=== PATIENT | male | born 1980 | race Caucasian/White ===

== ENCOUNTER 2016-07-21 01:14 | Emergency (ER) | payer BC ==
--- NOTE | 2016-07-21 03:29 | ED NURSING NOTES ---
Clinical Report - Nurses [place] [address] [place] [address] 07/21/2016 1:16 Patient: LORI COVARRUBIAS TRIAGE Triage time 01:25. Acuity: LEVEL 4. Chief Complaint: BACK PAIN and (mid back pain down to foot on left side). Alert. --: Armida Banks R.N. 01:25 07/21/16. BP: 134/86. HR: 79. RR: 15. O2 saturation: 98% on room air. Pain level now: 01/03. --: Armida Banks R.N. Weight: 83.9 kg stated. Height/Length: 74 inches Per Patient. BMI: 23.8. --: Armida Banks R.N. Medications Nitroglycerin Translingual, as needed, last dose 05-28-16. --: Armida Banks R.N. Allergies No Known Drug Allergy. --: Armida Banks R.N. History Arrived by private vehicle. Historian: patient. Primary physician (Young ([facility])). This started today. This is a new problem and onset was abrupt. (at about 1700). He has had trouble walking. 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 PAST MEDICAL HX: Tetanus status: up-to-date. Immunizations: up-to-date. SOCIAL HX: Heavy tobacco smoker- 1-2 packs per day. Occasional alcohol use. History of drug use: marijuana. NUTRITIONAL RISK ASSESSMENT: The nutritional risk assessment revealed no deficiencies. FUNCTIONAL ASSESSMENT: Functional assessment: no impairments noted. --: Armida Banks R.N. PROBLEMS: Asthma. Anxiety Reaction. --: Armida aBnks R.N. ADDITIONAL SURGERIES: Cholecystectomy. --: Armida Banks R.N. Interventions ID band on patient. To treatment room. --: Armida Banks R.N. PHYSICAL ASSESSMENT To room via wheelchair. GENERAL / NEURO / PSYCH: Alert. Oriented X 4. Appears in pain. RESPIRATORY: Respirations not labored. CVS: Capillary refill less than 2 seconds. --: Armida Banks R.N. NURSING PROGRESS NOTES Head of bed elevated. Two patient identifiers checked. Call light placed in reach. Side rails up x 1. Bed placed in lowest position. Brakes of bed on. -- Armida Bnaks R.N. Patient ready for evaluation- chart flagged. --: Armida Banks R.N. DISPOSITION / DISCHARGE Condition at departure: stable. No learning barriers present. Discharge instructions provided and reviewed with the patient. Reviewed medication(s) side effects, precautions, dosing and course information. Prescription(s) given to the patient. Patient verbalized understanding. Written instructions provided in Thai. The patient was discharged home and accompanied by floorperson. He left the Emergency Department ambulatory and via private vehicle. Outbound Telemarketer driving. --03:37 Armida Banks R.N. 03:34 07/21/16. BP: deferred. HR: deferred. RR: 16. O2 saturation: deferred. Temp: deferred. Nieves-Evans pain scale: 4/10. --03:37 Armida Banks R.N. ( pt refuses discharge vitals, states "I'm just ready to get home"). --03:38 Armida Banks R.N. Locked/Released at 07/21/2016 3:38 by Armida Banks R.N.
--- NOTE | 2016-07-21 03:29 | ED CLINICAL REPORT ---
Clinical Report - Physicians/Mid Levels [facility] [address] [place] [address] 07/21/2016 1:16 Patient: LORI COVARRUBIAS Time Seen: 01:42. Arrived- By private vehicle. Historian- patient. HISTORY OF PRESENT ILLNESS Chief Complaint: BACK PAIN. It is described as being in the area of the upper lumbar spine and radiating to the left thigh. Onset was today and it is still present. It was abrupt in onset and has been constant. No bladder dysfunction, bowel dysfunction, sensory loss or motor loss. Patient denies an injury. REVIEW OF SYSTEMS No chills, fever, sweats, calf pain or chest pain. No cough, difficulty breathing, pedal edema, palpitations or abdominal pain. No constipation, diarrhea, nausea, vomiting or urinary problems. All systems otherwise negative, except as recorded above. SOCIAL HISTORY Heavy tobacco smoker- 1-2 packs per day. Occasional alcohol use. History of drug use: marijuana. FAMILY HISTORY Denies family medical history. ADDITIONAL NOTES The nursing notes have been reviewed. PHYSICAL EXAM Vital Signs: 07/21/2016 01:25 BP: 134/86. HR: 79. RR: 15. O2 saturation: 98%. Pain level now: 7/10. Have been reviewed. Appearance: Alert. Eyes: Pupils equal, round and reactive to light. ENT: Pharynx normal. CVS: Heart sounds normal. Respiratory: No respiratory distress. Breath sounds normal. Abdomen: No visible injury. Soft and nontender. Bowel sounds normal. No organomegaly. No mass. Back: Normal inspection. Mild muscle spasm of the right and left posterior back. Vertebral point tenderness. Skin: Skin warm and dry. Normal skin color. Normal skin turgor. Extremities: Extremities exhibit normal ROM. Extremities nontender. LABS, X-RAYS, AND EKG LS-Spine X-rays: No fracture or subluxation. The X-rays were independently viewed by me. PROGRESS AND PROCEDURES Patient/family counseled. Old medical records ordered. Disposition: Discharged. Condition: stable. CLINICAL IMPRESSION Acute lumbar strain. INSTRUCTIONS No driving or operating machinery while taking medication. No lifting greater than 5 lbs, no bending or stooping or no prolonged sitting until well. Warnings: GENERAL WARNINGS: Return or contact your physician immediately if your condition worsens or changes unexpectedly, if not improving as expected, or if other problems arise. Prescription Medications: Flexeril 10 mg: Take 1 orally every 8 hours as needed for muscle spasm. Dispense twenty (20). No refills. Substitution is permissible. Diclofenac 50 mg tablets: Take 1 tablet orally every 8 hours as needed. Dispense thirty (30). No refills. Follow-up: Follow up with your doctor Tuesday in five days if not better. Call for an appointment. Understanding of the discharge instructions verbalized by patient. (Electronically signed by Robbie Meza MD 07/25/2016 16:02)
--- NOTE | 2016-07-21 03:29 | ED ORDER SUMMARY ---
..... Patient: LORI COVARRUBIAS OrderSheet [facility] VisitID: [id number] [address] [place] [address] 35y, M Registration Date/Time: 07/21/2016 ORDER SHEET Weight: 83.9 kg (stated) Allergies: No Known Drug Allergy GENERAL ORDERS: Lumbar Spine 2 or 3V Urgent (01:42 07/21/2016 Naomi CABRALES) (Ack 1:49 CHagerty ER Element Burner) (2:27 CHagerty ER Element Burner) MEDICATION ORDERS: IV FLUIDS: ORDER SHEET NOTES: [Electronically signed by Armida Banks R.N. (03:38 07/21/2016)] [Electronically signed by Robbie Meza MD (16:02 07/25/2016)] [Electronically locked/signed by Armida Banks R.N. (03:38 07/21/2016)]
--- NOTE | 2016-07-21 03:29 | ED ORDER SUMMARY ---
..... Patient: LORI COVARRUBIAS OrderSheet [facility] VisitID: [id number] [address] [place] [address] 35y, M Registration Date/Time: 07/21/2016 ORDER SHEET Weight: 83.9 kg (stated) Allergies: No Known Drug Allergy GENERAL ORDERS: Lumbar Spine 2 or 3V Urgent (01:42 07/21/2016 Naomi CABRALES) (Ack 1:49 CHagerty ER Auto Carrier Driver) (2:27 CHagerty ER Auto Carrier Driver) MEDICATION ORDERS: IV FLUIDS: ORDER SHEET NOTES: [Electronically signed by Armida Banks R.N. (03:38 07/21/2016)] [Electronically signed by Robbie Meza MD (16:02 07/25/2016)] [Electronically locked/signed by Armida Banks R.N. (03:38 07/21/2016)]
--- NOTE | 2016-07-21 03:29 | ED NURSING NOTES ---
Clinical Report - Nurses [place] [address] [place] [address] 07/21/2016 1:16 Patient: LORI COVARRUBIAS TRIAGE Triage time 01:25. Acuity: LEVEL 4. Chief Complaint: BACK PAIN and (mid back pain down to foot on left side). Alert. --: Armida Banks R.N. 01:25 07/21/16. BP: 134/86. HR: 79. RR: 15. O2 saturation: 98% on room air. Pain level now: 01/03. --: Armida Banks R.N. Weight: 83.9 kg stated. Height/Length: 74 inches Per Patient. BMI: 23.8. --: Armida Banks R.N. Medications Nitroglycerin Translingual, as needed, last dose 05-28-16. --: Armida Banks R.N. Allergies No Known Drug Allergy. --: Armida Banks R.N. History Arrived by private vehicle. Historian: patient. Primary physician (Young ([facility])). This started today. This is a new problem and onset was abrupt. (at about 1700). He has had trouble walking. 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 PAST MEDICAL HX: Tetanus status: up-to-date. Immunizations: up-to-date. SOCIAL HX: Heavy tobacco smoker- 1-2 packs per day. Occasional alcohol use. History of drug use: marijuana. NUTRITIONAL RISK ASSESSMENT: The nutritional risk assessment revealed no deficiencies. FUNCTIONAL ASSESSMENT: Functional assessment: no impairments noted. --: Armida Banks R.N. PROBLEMS: Asthma. Anxiety Reaction. --: Armida Banks R.N. ADDITIONAL SURGERIES: Cholecystectomy. --: Armida Banks R.N. Interventions ID band on patient. To treatment room. --: Armida Banks R.N. PHYSICAL ASSESSMENT To room via wheelchair. GENERAL / NEURO / PSYCH: Alert. Oriented X 4. Appears in pain. RESPIRATORY: Respirations not labored. CVS: Capillary refill less than 2 seconds. --: Armida Banks R.N. NURSING PROGRESS NOTES Head of bed elevated. Two patient identifiers checked. Call light placed in reach. Side rails up x 1. Bed placed in lowest position. Brakes of bed on. -- Armida Banks R.N. Patient ready for evaluation- chart flagged. --: Armida Banks R.N. DISPOSITION / DISCHARGE Condition at departure: stable. No learning barriers present. Discharge instructions provided and reviewed with the patient. Reviewed medication(s) side effects, precautions, dosing and course information. Prescription(s) given to the patient. Patient verbalized understanding. Written instructions provided in American. The patient was discharged home and accompanied by packing floor worker. He left the Emergency Department ambulatory and via private vehicle. Rug Touch Up Painter driving. --03:37 Armida Banks R.N. 03:34 07/21/16. BP: deferred. HR: deferred. RR: 16. O2 saturation: deferred. Temp: deferred. Nieves-Evans pain scale: 4/10. --03:37 Armida Banks R.N. ( pt refuses discharge vitals, states "I'm just ready to get home"). --03:38 Armida Banks R.N. Locked/Released at 07/21/2016 3:38 by Armida Banks R.N.
--- NOTE | 2016-07-21 03:29 | ED CLINICAL REPORT ---
Clinical Report - Physicians/Mid Levels [facility] [address] [place] [address] 07/21/2016 1:16 Patient: LORI COVARURBIAS Time Seen: 01:42. Arrived- By private vehicle. Historian- patient. HISTORY OF PRESENT ILLNESS Chief Complaint: BACK PAIN. It is described as being in the area of the upper lumbar spine and radiating to the left thigh. Onset was today and it is still present. It was abrupt in onset and has been constant. No bladder dysfunction, bowel dysfunction, sensory loss or motor loss. Patient denies an injury. REVIEW OF SYSTEMS No chills, fever, sweats, calf pain or chest pain. No cough, difficulty breathing, pedal edema, palpitations or abdominal pain. No constipation, diarrhea, nausea, vomiting or urinary problems. All systems otherwise negative, except as recorded above. SOCIAL HISTORY Heavy tobacco smoker- 1-2 packs per day. Occasional alcohol use. History of drug use: marijuana. FAMILY HISTORY Denies family medical history. ADDITIONAL NOTES The nursing notes have been reviewed. PHYSICAL EXAM Vital Signs: 07/21/2016 01:25 BP: 134/86. HR: 79. RR: 15. O2 saturation: 98%. Pain level now: 7/10. Have been reviewed. Appearance: Alert. Eyes: Pupils equal, round and reactive to light. ENT: Pharynx normal. CVS: Heart sounds normal. Respiratory: No respiratory distress. Breath sounds normal. Abdomen: No visible injury. Soft and nontender. Bowel sounds normal. No organomegaly. No mass. Back: Normal inspection. Mild muscle spasm of the right and left posterior back. Vertebral point tenderness. Skin: Skin warm and dry. Normal skin color. Normal skin turgor. Extremities: Extremities exhibit normal ROM. Extremities nontender. LABS, X-RAYS, AND EKG LS-Spine X-rays: No fracture or subluxation. The X-rays were independently viewed by me. PROGRESS AND PROCEDURES Patient/family counseled. Old medical records ordered. Disposition: Discharged. Condition: stable. CLINICAL IMPRESSION Acute lumbar strain. INSTRUCTIONS No driving or operating machinery while taking medication. No lifting greater than 5 lbs, no bending or stooping or no prolonged sitting until well. Warnings: GENERAL WARNINGS: Return or contact your physician immediately if your condition worsens or changes unexpectedly, if not improving as expected, or if other problems arise. Prescription Medications: Flexeril 10 mg: Take 1 orally every 8 hours as needed for muscle spasm. Dispense twenty (20). No refills. Substitution is permissible. Diclofenac 50 mg tablets: Take 1 tablet orally every 8 hours as needed. Dispense thirty (30). No refills. Follow-up: Follow up with your doctor Tuesday in five days if not better. Call for an appointment. Understanding of the discharge instructions verbalized by patient. (Electronically signed by Robbie Meza MD 07/25/2016 16:02)
--- NOTE | 2016-07-21 06:02 | DIAGNOSTIC IMAGING REPORT ---
PROCEDURE: XR LUMBAR SPINE 2 OR 3 VIEWS INDICATION: LOWER BACK PAIN TECHNIQUE: Three views. COMPARISON: None. FINDINGS: Osseous structures and disc spaces are normal. No evidence of an acute process or fracture. Surgical clips right upper quadrant suggest cholecystectomy. IMPRESSION: 1. Negative lumbar spine.
--- NOTE | 2016-07-25 16:03 | ED DISCHARGE INSTRUCTIONS ---
Patient: LORI COVARRUBIAS General Instructions [facility] VisitID: [id number] [address] [place] [address] 35y, M Registration Date/Time: 07/21/2016 Acute lumbar strain. INSTRUCTIONS No driving or operating machinery while taking medication. No lifting greater than 5 lbs, no bending or stooping or no prolonged sitting until well. Warnings: GENERAL WARNINGS: Return or contact your physician immediately if your condition worsens or changes unexpectedly, if not improving as expected, or if other problems arise. Prescription Medications: Flexeril 10 mg: Take 1 orally every 8 hours as needed for muscle spasm. Dispense twenty (20). No refills. Substitution is permissible. Diclofenac 50 mg tablets: Take 1 tablet orally every 8 hours as needed. Dispense thirty (30). No refills. Follow-up: Follow up with your doctor Tuesday in five days if not better. Call for an appointment. Understanding of the discharge instructions verbalized by patient. ADDITIONAL INFORMATION Sciatica Sciatica ("Lumbar Radiculopathy") causes a pain that spreads from the lower back down into the buttock, hip and leg. Sometimes leg pain can occur without any back pain. Sciatica is due to irritation or pressure on a spinal nerve as it comes out of the spinal canal. This is most often due to a bulge or rupture of a nearby spinal disk (the cartilage cushion between each spinal bone), which presses on a nearby nerve. Other causes include spinal stenosis (narrowing of the spinal canal) and spasm of the pyriform muscle (a muscle in the buttocks that the sciatic nerve passes through). Sciatica may begin after a sudden twisting/bending force (such as in a car accident), or sometimes after a simple awkward movement. In either case, muscle spasm is commonly present and contributes to the pain. The diagnosis of sciatica is made from the symptoms and physical exam. Unless you had a physical injury (such as a car accident or fall), X-rays are usually not ordered for the initial evaluation of sciatica because the nerves and disks cannot be seen on an x-ray. If signs of a compressed nerve are present (for example, loss of tendon reflex or strength in the leg), an MRI (magnetic resonance imaging) scan will need to be scheduled as an outpatient. Most sciatica (80-90%) gets better with medicine, exercise, physical therapy. If symptoms continue after at least three months of medical treatment, surgery may be considered. Home Care: You may need to stay in bed the first few days. But, as soon as possible, begin sitting or walking to avoid problems with prolonged bed rest. When in bed, try to find a position of comfort. A firm mattress is best. Try lying flat on your back with pillows under your knees. You can also try lying on your side with your knees bent up towards your chest and a pillow between your knees. Avoid prolonged sitting. This puts more stress on the lower back than standing or walking. Some persons find relief with heat (hot shower, hot bath or heating pad) and massage, while others prefer cold packs (crushed or cubed ice in a plastic bag, wrapped in a towel). Try both and use the method that feels best for 20 minutes several times a day. You may use acetaminophen (Tylenol) or ibuprofen (Motrin, Advil) to control pain, unless another pain medicine was prescribed. [ NOTE: If you have chronic liver or kidney disease or ever had a stomach ulcer or GI bleeding, talk with your doctor before using these medicines.] Be aware of safe lifting methods and do not lift anything over 15 pounds until all the pain is gone. Follow Up with your doctor or this facility if your symptoms do not start to improve after one week. Physical therapy or further testing may be needed. [NOTE: If X-rays were taken, they will be reviewed by a radiologist. You will be notified of any new findings that may affect your care.] Get Prompt Medical Attention if any of the following occur: Pain becomes worse, not controlled by the prescribed medicine Weakness or numbness in one or both legs Numbness in the groin, genital area Loss of bowel or bladder control Cyclobenzaprine Hydrochloride Oral tablet What is this medicine? CYCLOBENZAPRINE (ahmet miller) is a muscle relaxer. It is used to treat muscle pain, spasms, and stiffness. How should I use this medicine? Take this medicine by mouth with a glass of water. Follow the directions on the prescription label. If this medicine upsets your stomach, take it with food or milk. Take your medicine at regular intervals. Do not take it more often than directed. Talk to your substance abuse services director regarding the use of this medicine in children. Special care may be needed. What side effects may I notice from receiving this medicine? Side effects that you should report to your doctor or health certified caregiver as soon as possible: allergic reactions like skin rash, itching or hives, swelling of the face, lips, or tongue chest pain fast heartbeat hallucinations seizures vomiting Side effects that usually do not require medical attention (report to your doctor or health certified caregiver if they continue or are bothersome): headache What may interact with this medicine? Do not take this medicine with any of the following medications: cisapride droperidol flecainide grepafloxacin halofantrine levomethadyl MAOIs like Carbex, Eldepryl, Marplan, Nardil, and Parnate nilotinib pimozide probucol sertindole This medicine may also interact with the following medications: abarelix alcohol contrast dyes dolasetron guanethidine medicines for cancer medicines for depression, anxiety, or psychotic disturbances medicines to treat an irregular heartbeat medicines used for sleep or numbness during surgery or procedure methadone octreotide ondansetron palonosetron phenothiazines like chlorpromazine, mesoridazine, prochlorperazine, thioridazine some medicines for infection like alfuzosin, chloroquine, clarithromycin, levofloxacin, mefloquine, pentamidine, troleandomycin tramadol vardenafil What if I miss a dose? If you miss a dose, take it as soon as you can. If it is almost time for your next dose, take only that dose. Do not take double or extra doses. Where should I keep my medicine? Keep out of the reach of children. Store at room temperature between 15 and 30 degrees C (59 and 86 degrees F). Keep container tightly closed. Throw away any unused medicine after the expiration date. What should I tell my health care provider before I take this medicine? They need to know if you have any of these conditions: heart disease, irregular heartbeat, or previous heart attack liver disease thyroid problem an unusual or allergic reaction to cyclobenzaprine, tricyclic antidepressants, lactose, other medicines, foods, dyes, or preservatives or trying to get breast-feeding What should I watch for while using this medicine? Check with your doctor or health certified caregiver if your condition does not improve within 1 to 3 weeks. You may get drowsy or dizzy when you first start taking the medicine or change doses. Do not drive, use machinery, or do anything that may be dangerous until you know how the medicine affects you. Stand or sit up slowly. Your mouth may get dry. Drinking water, chewing sugarless gum, or sucking on hard candy may help. You have been given the following additional information: Back Pain W/ Sciatica Cyclobenzaprine Hydrochloride Oral tablet No driving or operating machinery while taking medication. No lifting greater than 5 lbs, no bending or stooping or no prolonged sitting until well. (Electronically signed by Robbie Meza MD 07/25/2016 16:02)
--- NOTE | 2016-07-25 16:03 | ED MED RECONCILIATION SUMMARY ---
Patient: LORI COVARRUBIAS Medication Reconciliation Report [facility] VisitID: [id number] [address] [place] [address] 35y, M Registration Date/Time: 07/21/2016 Weight: 83.9 kg Height/Length: 74 in. BMI: 23.8 ALLERGIES: No Known Drug Allergy The patient's Home Medications are listed below: THE FOLLOWING MEDICATIONS NEED TO BE RECONCILED: Nitroglycerin Translingual, last dose: 05-28-16 The source(s) of the original Home Medication information: Not obtained. The following Medications were given to the patient in the Emergency Department: None. The following Medications were prescribed to the patient: Flexeril 10 mg: Take 1 orally every 8 hours as needed for muscle spasm. Dispense twenty (20). No refills. Substitution is permissible. -- Robbie Meza MD Diclofenac 50 mg tablets: Take 1 tablet orally every 8 hours as needed. Dispense thirty (30). No refills. -- Robbie Meza MD
--- NOTE | 2016-07-25 16:03 | ED MAR SUMMARY ---
..... Medication Administration Record [facility] [address] [place], [place] [id number] Patient: LORI COVARRUBIAS Visit ID: [id number] 35y, M Weight: 83.9 kg Height/Length: 74 in BMI: 23.8 ALLERGIES: No Known Drug Allergy
--- NOTE | 2016-07-25 16:03 | ED MED RECONCILIATION SUMMARY ---
Patient: LORI COVARRUBIAS Medication Reconciliation Report [facility] VisitID: [id number] [address] [place] [address] 35y, M Registration Date/Time: 07/21/2016 Weight: 83.9 kg Height/Length: 74 in. BMI: 23.8 ALLERGIES: No Known Drug Allergy The patient's Home Medications are listed below: THE FOLLOWING MEDICATIONS NEED TO BE RECONCILED: Nitroglycerin Translingual, last dose: 05-28-16 The source(s) of the original Home Medication information: Not obtained. The following Medications were given to the patient in the Emergency Department: None. The following Medications were prescribed to the patient: Flexeril 10 mg: Take 1 orally every 8 hours as needed for muscle spasm. Dispense twenty (20). No refills. Substitution is permissible. -- Robbie Meza MD Diclofenac 50 mg tablets: Take 1 tablet orally every 8 hours as needed. Dispense thirty (30). No refills. -- Robbie Meza MD
--- NOTE | 2016-07-25 16:03 | ED MAR SUMMARY ---
..... Medication Administration Record [address] [place], [place] [id number] Patient: LORI COVARRUBIAS Visit ID: [id number] 35y, M Weight: 83.9 kg Height/Length: 74 in BMI: 23.8 ALLERGIES: No Known Drug Allergy
== END 2016-07-21 03:35 | disposition home or self-care (01) ==
LOC: ED SRH 01:14
DX: S39.012A Strain of muscle, fascia and tendon of lower back, initial encounter (principal); F17.210 Nicotine dependence, cigarettes, uncomplicated; J45.909 Unspecified asthma, uncomplicated; X58.XXXA Exposure to other specified factors, initial encounter; Y93.9 Activity, unspecified; Y92.9 Unspecified place or not applicable; Y99.9 Unspecified external cause status